=== PATIENT | male | born 1990 | race Hispanic/Latino ===

== ENCOUNTER 2019-03-27 00:05 | Emergency (ER) | payer SELFPAY ==
--- NOTE | 2019-03-27 00:41 | ER ---
Nurse's Notes [facility] Name: Ponce Kaiser Caro Age: 28 yrs Sex: Male : 1990 Arrival Date: 03/27/2019 Time: 00:08 Bed 4 Private MD: Diagnosis: Conjunctivitis Presentation: 03/27 00:20 Presenting complaint: Patient states: Reports Sunday he woke up with pink, itchy left ea eye. Pt reports it is getting worse and feels like redness and itching is starting on the right eye as well. Transition of care: patient was not received from another setting of care. Mechanism of Injury: No Mechanism of Injury. The patient denies any loss of vision. Onset of symptoms was March 27, 2019. Risk Assessment: Do you want to hurt yourself or someone else? Patient reports no desire to harm self or others. Initial Sepsis Screen: Does the patient meet any 2 criteria? No. Patient's initial sepsis screen is negative. Does the patient have a suspected source of infection? No. Patient's initial sepsis screen is negative. Care prior to arrival: None. 00:20 Method Of Arrival: Ambulatory ea 00:20 Acuity: DREAD 4 ea Triage Assessment: 00:23 General: Appears uncomfortable, Behavior is appropriate for age. Pain: Complains of ea pain in left eye Quality of pain is described as itchy. EENT: Eyes are tearing on outer aspect of conjuctiva of left eye, iris of left eye and inner aspect of conjunctiva of left eye. Historical: - Allergies: 00:22 No Known Allergies; ea - Home Meds: 00:22 None [Active]; ea - PMHx: 00:22 None; ea - PSHx: 00:22 None; ea - Immunization history:: Adult Immunizations up to date. - Social history:: Smoking status: Patient/guardian denies using tobacco. - Ebola Screening: : No symptoms or risks identified at this time. Screenin:22 Abuse screen: Denies threats or abuse. Nutritional screening: No deficits noted. ea Tuberculosis screening: No symptoms or risk factors identified. Fall Risk None identified. Assessment: 00:22 General: Appears in no apparent distress. comfortable, Behavior is calm, cooperative, rr5 appropriate for age. Pain: Denies pain. Neuro: Level of Consciousness is awake, alert, obeys commands, Oriented to person, place, time, situation. Cardiovascular: Capillary refill < 3 seconds Patient's skin is warm and dry. Respiratory: Airway is patent Respiratory effort is even, unlabored, Respiratory pattern is regular, symmetrical. 00:22 GI: No signs and/or symptoms were reported involving the gastrointestinal system. : rr5 No signs and/or symptoms were reported regarding the genitourinary system. EENT: Sclera/Cornea are reddened in outer aspect of conjuctiva of right eye, iris of right eye, inner aspect of conjuctiva of right eye, outer aspect of conjuctiva of left eye, iris of left eye and inner aspect of conjunctiva of left eye. Derm: Skin is intact, Skin temperature is warm. Musculoskeletal: Circulation, motion, and sensation intact. Capillary refill < 3 seconds. 00:22 EENT: Eyes with exudate noted from right inner canthus and left inner canthus rr5 Sclera/Cornea. 00:50 Reassessment: Patient appears in no apparent distress at this time. Patient is alert, rr5 oriented x 3, equal unlabored respirations, skin warm/dry/pink. discharge instruction given and explained without complaints made. Vital Signs: 00:22 BP 131 / 69; Pulse 79; Resp 18; Temp 98; Pulse Ox 97% on R/A; Weight 61.23 kg; Height 5 ea ft. 7 in. (170.18 cm); 00:22 Body Mass Index 21.14 (61.23 kg, 170.18 cm) ea Visual Acuity: 00:22 Left Eye Visual acuity 20/20, Pupil size 2 mm, Normal, Brisk; Right Eye Visual acuity rr5 20/20, Pupil size 2 mm, Normal, Brisk; Without Lenses; ED Course: 00:08 Patient arrived in ED. ds1 00:21 Triage completed. ea 00:21 Arm band placed on right wrist. Patient placed in an exam room, on a stretcher, on ea pulse oximetry. 00:22 Violeta Lanza FNP-C is PHCP. kb 00:22 Gustavo Mcneil MD is Attending Physician. kb 00:23 Patient has correct armband on for positive identification. Bed in low position. Call ea light in reach. 00:48 Karthikeyan French RN is Primary Nurse. rr5 00:50 No provider procedures requiring assistance completed. Patient did not have IV access rr5 during this emergency room visit. Administered Medications: No medications were administered Outcome: 00:33 Discharge ordered by . suzette 00:49 Discharged to home ambulatory. rr5 00:49 Condition: stable 00:49 Discharge instructions given to patient, Instructed on discharge instructions, follow up and referral plans. medication usage, Demonstrated understanding of instructions, follow-up care, medications, Prescriptions given X 1. 00:50 Patient left the ED. rr5 Signatures: Violeta Lanza, STAPLE SHEAR OPERATOR-C STAPLE SHEAR OPERATOR-Samanta William ds1 Yamilex Bardales, RN RN Karthikeyan Lyn, RN RN rr5
--- NOTE | 2019-03-27 00:43 | EDPHYS ---
Physician Documentation [facility] Name: Ponce Kaiser Caro Age: 28 yrs Sex: Male : 1990 Arrival Date: 03/27/2019 Time: 00:08 Bed 4 Private MD: ED Physician Gustavo Mcneil HPI: 03/27 00:27 This 28 yrs old Male presents to ER via Ambulatory with complaints of Eye Pain kb - Redness. 00:27 The patient is experiencing burning, matting or discharge, redness, The patient kb sustained None. to both eyes, caused by an unknown mechanism. Onset: The symptoms/episode began/occurred 3 day(s) ago. Duration: the symptoms are continuous. Aggravated by nothing. Alleviated by nothing. Associated signs and symptoms: Pertinent positives: None. Patient does not utilize any form of vision correction. Severity of symptoms: At their worst the symptoms were mild moderate in the emergency department the symptoms are unchanged. The patient has not experienced similar symptoms in the past. Pt reports he started having watering and itching to left eye on Sunday. Reports symptoms have gotten progressively worse since then with burning, itching, redness and matting. Today started having itching to right eye so is afraid it is starting there as well. Denies visual changes. No pain with EOM. Historical: - Allergies: 00:22 No Known Allergies; ea - Home Meds: 00:22 None [Active]; ea - PMHx: 00:22 None; ea - PSHx: 00:22 None; ea - Immunization history:: Adult Immunizations up to date. - Social history:: Smoking status: Patient/guardian denies using tobacco. - Ebola Screening: : No symptoms or risks identified at this time. ROS: 00:32 Constitutional: Negative for fever, chills, and weight loss, ENT: Negative for injury, kb pain, and discharge, Neck: Negative for injury, pain, and swelling, Cardiovascular: Negative for chest pain, palpitations, and edema, Respiratory: Negative for shortness of breath, cough, wheezing, and pleuritic chest pain, Abdomen/GI: Negative for abdominal pain, nausea, vomiting, diarrhea, and constipation, Back: Negative for injury and pain, MS/Extremity: Negative for injury and deformity, Skin: Negative for injury, rash, and discoloration, Neuro: Negative for headache, weakness, numbness, tingling, and seizure. 00:32 Eyes: Positive for discharge, itching, matting, redness. Exam: 00:32 Constitutional: This is a well developed, well nourished patient who is awake, alert, kb and in no acute distress. Head/Face: Normocephalic, atraumatic. ENT: Nares patent. No nasal discharge, no septal abnormalities noted. Tympanic membranes are normal and external auditory canals are clear. Oropharynx with no redness, swelling, or masses, exudates, or evidence of obstruction, uvula midline. Mucous membranes moist. Neck: Trachea midline, no thyromegaly or masses palpated, and no cervical lymphadenopathy. Supple, full range of motion without nuchal rigidity, or vertebral point tenderness. No Meningismus. Chest/axilla: Normal chest wall appearance and motion. Nontender with no deformity. No lesions are appreciated. Cardiovascular: Regular rate and rhythm with a normal S1 and S2. No gallops, murmurs, or rubs. Normal PMI, no JVD. No pulse deficits. Respiratory: Lungs have equal breath sounds bilaterally, clear to auscultation and percussion. No rales, rhonchi or wheezes noted. No increased work of breathing, no retractions or nasal flaring. Abdomen/GI: Soft, non-tender, with normal bowel sounds. No distension or tympany. No guarding or rebound. No evidence of tenderness throughout. Skin: Warm, dry with normal turgor. Normal color with no rashes, no lesions, and no evidence of cellulitis. MS/ Extremity: Pulses equal, no cyanosis. Neurovascular intact. Full, normal range of motion. Neuro: Awake and alert, GCS 15, oriented to person, place, time, and situation. Cranial nerves II-XII grossly intact. Motor strength 5/5 in all extremities. Sensory grossly intact. Cerebellar exam normal. Normal gait. 00:32 Eyes: Pupils: equal, round, and reactive to light and accomodation, Extraocular movements: intact throughout, Conjunctiva: exudate, in the left eye, injected, bilaterally, worse on left. Vital Signs: 00:22 BP 131 / 69; Pulse 79; Resp 18; Temp 98; Pulse Ox 97% on R/A; Weight 61.23 kg; Height 5 ea ft. 7 in. (170.18 cm); 00:22 Body Mass Index 21.14 (61.23 kg, 170.18 cm) ea Visual Acuity: 00:22 Left Eye Visual acuity 20/20, Pupil size 2 mm, Normal, Brisk; Right Eye Visual acuity rr5 20/20, Pupil size 2 mm, Normal, Brisk; Without Lenses; MDM: 00:22 Patient medically screened. kb 00:27 Data reviewed: vital signs, nurses notes. Data interpreted: Pulse oximetry: on room air kb is 97 %. Interpretation: normal. Counseling: I had a detailed discussion with the patient and/or guardian regarding: the historical points, exam findings, and any diagnostic results supporting the discharge/admit diagnosis, the need for outpatient follow up, a family practitioner, to return to the emergency department if symptoms worsen or persist or if there are any questions or concerns that arise at home. Administered Medications: No medications were administered Disposition: 03/27/19 00:33 Discharged to Home. Impression: Conjunctivitis. - Condition is Stable. - Discharge Instructions: Bacterial Conjunctivitis, [id number]. - Prescriptions for Erythromycin 5 mg/gram (0.5 %) Ophthalmic Ointment - apply 1 centimeter by OPHTHALMIC route 2-3 times daily for 7 days; 1 tube. - Medication Reconciliation Form, Thank You Letter, Antibiotic Education, Prescription Opioid Use form. - Follow up: Emergency Department; When: As needed; Reason: Worsening of condition. Follow up: Private Physician; When: 2 - 3 days; Reason: Recheck today's complaints, Continuance of care, Re-evaluation by your physician. Signatures: Violeta Lanza FNP-C FNP-Yamilex No, RN RN Karthikeyan Lyn RN RN rr5 Corrections: (The following items were deleted from the chart) 00:50 00:33 03/27/2019 00:33 Discharged to Home. Impression: Conjunctivitis. Condition is rr5 Stable. Forms are Medication Reconciliation Form, Thank You Letter, Antibiotic Education, Prescription Opioid Use. Follow up: Emergency Department; When: As needed; Reason: Worsening of condition. Follow up: Private Physician; When: 2 - 3 days; Reason: Recheck today's complaints, Continuance of care, Re-evaluation by your physician. kb
[2019-03-27 04:54] VITALS: BP 131/69; TEMP 98; O2SAT 97
== END 2019-03-27 00:50 | disposition home or self-care (01) ==
LOC: ER 00:05
DX: H10.9 Unspecified conjunctivitis (principal)
CPT/HCPCS: 99283

== ENCOUNTER 2019-04-08 23:49 | Emergency (ER) | payer SELFPAY ==
--- NOTE | 2019-04-09 00:14 | EDPHYS ---
Physician Documentation [facility] Name: Ponce Kaiser Caro Age: 28 yrs Sex: Male : 1990 Arrival Date: 04/08/2019 Time: 23:54 Bed 13 Private MD: ED Physician Jonathan Luke HPI: 04/09 00:30 This 28 yrs old Male presents to ER via Ambulatory with complaints of Redness pm1 of Eye. 00:30 The patient is experiencing pain, redness, tearing, to the left eye, caused by an pm1 unknown mechanism. Onset: The symptoms/episode began/occurred 2 week(s) ago. Duration: the symptoms are continuous. Aggravated by nothing. Alleviated by nothing. Associated signs and symptoms: Pertinent negatives: fever, headache. Patient does not utilize any form of vision correction. The patient has not experienced similar symptoms in the past. The patient has been recently seen at the [facility] Emergency Department, for similar complaints was given a prescription for antibiotics. Historical: - Allergies: 00:03 No Known Allergies; ea - Home Meds: 00:03 None [Active]; ea - PMHx: 00:03 None; ea - PSHx: 00:03 None; ea - Immunization history:: Adult Immunizations up to date. - Social history:: Smoking status: Patient/guardian denies using tobacco. - Ebola Screening: : No symptoms or risks identified at this time. ROS: 00:30 Constitutional: Negative for fever, chills, and weight loss. pm1 00:30 ENT: Negative for injury, pain, and discharge, Neck: Negative for injury, pain, and swelling, Cardiovascular: Negative for chest pain, palpitations, and edema, Respiratory: Negative for shortness of breath, cough, wheezing, and pleuritic chest pain, Abdomen/GI: Negative for abdominal pain, nausea, vomiting, diarrhea, and constipation, Back: Negative for injury and pain, MS/Extremity: Negative for injury and deformity, Skin: Negative for injury, rash, and discoloration, Neuro: Negative for headache, weakness, numbness, tingling, and seizure. 00:30 Eyes: Positive for blurry vision, discharge, pain. Exam: 00:30 Constitutional: This is a well developed, well nourished patient who is awake, alert, pm1 and in no acute distress. Head/Face: Normocephalic, atraumatic. 00:30 ENT: Nares patent. No nasal discharge, no septal abnormalities noted. Tympanic membranes are normal and external auditory canals are clear. Oropharynx with no redness, swelling, or masses, exudates, or evidence of obstruction, uvula midline. Mucous membranes moist. Neck: Trachea midline, no thyromegaly or masses palpated, and no cervical lymphadenopathy. Supple, full range of motion without nuchal rigidity, or vertebral point tenderness. No Meningismus. Chest/axilla: Normal chest wall appearance and motion. Nontender with no deformity. No lesions are appreciated. Cardiovascular: Regular rate and rhythm with a normal S1 and S2. No gallops, murmurs, or rubs. Normal PMI, no JVD. No pulse deficits. Respiratory: Lungs have equal breath sounds bilaterally, clear to auscultation and percussion. No rales, rhonchi or wheezes noted. No increased work of breathing, no retractions or nasal flaring. Skin: Warm, dry with normal turgor. Normal color with no rashes, no lesions, and no evidence of cellulitis. MS/ Extremity: Pulses equal, no cyanosis. Neurovascular intact. Full, normal range of motion. 00:30 Eyes: Extraocular movements: intact throughout, Conjunctiva: injected, in the left eye. 00:30 Neuro: Orientation: is normal, Motor: is normal, moves all fours. Vital Signs: 00:02 BP 139 / 81; Pulse 71; Resp 18; Temp 98; Pulse Ox 98% ; Weight 75.75 kg; Height 5 ft. 8 ea in. (172.72 cm); Pain 8/10; 00:55 BP 128 / 81; Pulse 63; Resp 18; Pulse Ox 98% ; jb4 00:02 Body Mass Index 25.39 (75.75 kg, 172.72 cm) ea Visual Acuity: 01:01 Left Eye Visual acuity 20/40, ; Right Eye Visual acuity 20/20, ; Without Lenses; ea MDM: 00:03 Patient medically screened. pm1 00:11 Data reviewed: vital signs. Data interpreted: Pulse oximetry: on room air is 98 %. pm1 Interpretation: normal. Counseling: I had a detailed discussion with the patient and/or guardian regarding: the historical points, exam findings, and any diagnostic results supporting the discharge/admit diagnosis, the need for outpatient follow up, for definitive care, an opthalmologist, to return to the emergency department if symptoms worsen or persist or if there are any questions or concerns that arise at home. 04/09 00:14 Order name: Visual Acuity; Complete Time: 01:00 pm1 Administered Medications: 00:29 Drug: Tetracaine Drops 0.5 % 1 drops Route: Ophthalmic; Site: left eye; ea 00:30 Drug: Tylenol #3 (300 mg-30 mg) 1 tablet Route: PO; ea 01:05 Follow up: Response: No adverse reaction; RASS: Alert and Calm (0) jb4 Disposition: 04/09/19 00:13 Discharged to Home. Impression: Conjunctivitis. - Condition is Stable. - Discharge Instructions: Bacterial Conjunctivitis. - Prescriptions for Vigamox 0.5 % Ophthalmic Drops - instill 1 drop by OPHTHALMIC route every 8 hours for 7 days; 5 milliliter. Diclofenac Sodium 75 mg Oral Tablet Sustained Release - take 1 tablet by ORAL route 2 times per day; 30 tablet. - Medication Reconciliation Form, Thank You Letter, Antibiotic Education, Prescription Opioid Use, Work release form form. - Follow up: Emergency Department; When: As needed; Reason: Worsening of condition. Follow up: Private Physician; When: 2 - 3 days; Reason: Recheck today's complaints, Continuance of care, Re-evaluation by your physician. - Problem is new. - Symptoms have improved. Addendum: 04/10/2019 07:43 Co-signature as Attending Physician, Jonathan Luke MD I agree with the assessment and c edmonds plan of care. Signatures: Jonathan Luke MD MD cha Marinas, Patrick, NP SURVEYOR INSTRUMENT ASSISTANT pm1 Jonel Zimmerman RN RN jb4 Yamilex Bardales RN RN ea Corrections: (The following items were deleted from the chart) 04/09 01:06 00:13 04/09/2019 00:13 Discharged to Home. Impression: Conjunctivitis. Condition is jb4 Stable. Forms are Medication Reconciliation Form, Thank You Letter, Antibiotic Education, Prescription Opioid Use. Follow up: Emergency Department; When: As needed; Reason: Worsening of condition. Follow up: Private Physician; When: 2 - 3 days; Reason: Recheck today's complaints, Continuance of care, Re-evaluation by your physician. Problem is new. Symptoms have improved. pm1
--- NOTE | 2019-04-09 00:14 | ER ---
Nurse's Notes [facility] Name: Ponce Kaiser Caro Age: 28 yrs Sex: Male : 1990 Arrival Date: 04/08/2019 Time: 23:54 Bed 13 Private MD: Diagnosis: Conjunctivitis Presentation: 04/09 00:01 Presenting complaint: Patient states: Pt complaining of left eye pain, reports he was ea seen a week ago for the same issue but symptoms worsened. Transition of care: patient was not received from another setting of care. Onset of symptoms was April 09, 2019. Risk Assessment: Do you want to hurt yourself or someone else? Patient reports no desire to harm self or others. Initial Sepsis Screen: Does the patient meet any 2 criteria? No. Patient's initial sepsis screen is negative. Does the patient have a suspected source of infection? No. Patient's initial sepsis screen is negative. Care prior to arrival: None. 00:01 Method Of Arrival: Ambulatory ea 00:01 Acuity: DREAD 3 ea Triage Assessment: 00:02 General: Appears uncomfortable, Behavior is calm, cooperative, appropriate for age. ea Pain: Complains of pain in left eye. Historical: - Allergies: 00:03 No Known Allergies; ea - Home Meds: 00:03 None [Active]; ea - PMHx: 00:03 None; ea - PSHx: 00:03 None; ea - Immunization history:: Adult Immunizations up to date. - Social history:: Smoking status: Patient/guardian denies using tobacco. - Ebola Screening: : No symptoms or risks identified at this time. Screenin:02 Abuse screen: Denies threats or abuse. Nutritional screening: No deficits noted. ea Tuberculosis screening: No symptoms or risk factors identified. Fall Risk None identified. Assessment: 01:03 Reassessment: Patient and/or family updated on plan of care and expected duration. Pain jb4 level reassessed. Patient is alert, oriented x 3, equal unlabored respirations, skin warm/dry/pink. Discharge instruction given to patient, verbalized the understanding of instruction. Pt left ED accompanied by family. Vital Signs: 00:02 BP 139 / 81; Pulse 71; Resp 18; Temp 98; Pulse Ox 98% ; Weight 75.75 kg; Height 5 ft. 8 ea in. (172.72 cm); Pain 8/10; 00:55 BP 128 / 81; Pulse 63; Resp 18; Pulse Ox 98% ; jb4 00:02 Body Mass Index 25.39 (75.75 kg, 172.72 cm) ea Visual Acuity: 01:01 Left Eye Visual acuity 20/40, ; Right Eye Visual acuity 20/20, ; Without Lenses; ea ED Course: 04/08 23:54 Patient arrived in ED. cl3 04/09 00:02 Triage completed. ea 00:02 Killian Devlin NP is PHCP. pm1 00:02 Jonathan Luke MD is Attending Physician. pm1 00:03 Arm band placed on right wrist. Patient placed in an exam room, on a stretcher, on ea pulse oximetry. 00:03 Patient has correct armband on for positive identification. Bed in low position. Call ea light in reach. Side rails up X2. 01:00 No provider procedures requiring assistance completed. Patient did not have IV access ea during this emergency room visit. Administered Medications: 00:29 Drug: Tetracaine Drops 0.5 % 1 drops Route: Ophthalmic; Site: left eye; ea 00:30 Drug: Tylenol #3 (300 mg-30 mg) 1 tablet Route: PO; ea 01:05 Follow up: Response: No adverse reaction; RASS: Alert and Calm (0) jb4 Outcome: 00:13 Discharge ordered by . pm1 01:04 Discharged to home ambulatory, with family. jb4 01:04 Condition: stable 01:04 Discharge instructions given to patient, Instructed on discharge instructions, follow up and referral plans. medication usage, Demonstrated understanding of instructions, follow-up care, medications. 01:06 Patient left the ED. jb4 Signatures: Killian Devlin NP MACHINE STONE POLISHER APPRENTICE pm1 Jonel Zimmerman RN RN jb4 Yamilex Bardales RN RN ea Lewis, Charde cl3 Corrections: (The following items were deleted from the chart) 01:06 01:05 BP 128 / 81; Pulse 63bpm; Resp 18bpm; Pulse Ox 98%; jb4 jb4
[2019-04-09] MEDS ORDERED: TETRACAINE HCL 0.5% 4ML OPTH ONE (00:16)
[2019-04-09] MEDS ORDERED: CODEINE 30MG/APAP 300MG TAB ONE (00:30)
[2019-04-09 01:21] VITALS: TEMP 98; O2SAT 98
[2019-04-09 01:22] VITALS: BP 128/81
== END 2019-04-09 01:06 | disposition home or self-care (01) ==
LOC: ER 23:49
DX: H10.9 Unspecified conjunctivitis (principal)
CPT/HCPCS: 99283

== ENCOUNTER 2019-05-28 19:00 | Emergency (ER) | payer SELFPAY ==
[2019-05-28 20:26] LABS: Urine Blood NEGATIVE (NEG); Urine Glucose NEGATIVE (NEG); Urine Protein NEGATIVE (NEG); Urine Specific Gravity 1.025 (1.005-1.030)
--- NOTE | 2019-05-28 21:16 | EDPHYS ---
Physician Documentation [facility] Name: Ponce Kaiser Caro Age: 28 yrs Sex: Male : 1990 Arrival Date: 05/28/2019 Time: 19:02 Bed 8 Private MD: DOMI Physician Saeed Bartholomew HPI: 05/29 02:32 This 28 yrs old Male presents to ER via Ambulatory with complaints of Penile tw4 Discharge, Pain With Urination. 02:32 The patient presents with symptoms include dysuria, purulent penile discharge, urinary tw4 symptoms, dysuria. Onset: The symptoms/episode began/occurred 2 day(s) ago. Modifying factors: The symptoms are alleviated by nothing, the symptoms are aggravated by urinating. Associated signs and symptoms: The patient has no apparent associated signs or symptoms. Severity of symptoms: At their worst the symptoms were moderate. The patient has not experienced similar symptoms in the past. Historical: - Allergies: 05/28 19:32 No Known Allergies; aj1 - Home Meds: 19:32 None [Active]; aj1 - PMHx: 19:32 None; aj1 - PSHx: 19:32 None; aj1 - Immunization history:: Flu vaccine is not up to date. - Social history:: Smoking status: Patient/guardian denies using tobacco. - Ebola Screening: : Patient denies travel to an Ebola-affected area in the 21 days before illness onset. ROS: 05/29 02:32 Constitutional: Negative for fever, chills, and weight loss, Eyes: Negative for injury, tw4 pain, redness, and discharge, Cardiovascular: Negative for chest pain, palpitations, and edema, Respiratory: Negative for shortness of breath, cough, wheezing, and pleuritic chest pain, Abdomen/GI: Negative for abdominal pain, nausea, vomiting, diarrhea, and constipation, Back: Negative for injury and pain. MS/Extremity: Negative for injury and deformity, Skin: Negative for injury, rash, and discoloration, Neuro: Negative for headache, weakness, numbness, tingling, and seizure. : Positive for burning with urination, difficulty urinating, Negative for injury or acute deformity, urinary symptoms, urinary frequency, small amounts, hematuria, penile pain, testicular pain Exam: 02:32 Constitutional: This is a well developed, well nourished patient who is awake, alert, tw4 and in no acute distress. Head/Face: Normocephalic, atraumatic. Chest/axilla: Normal chest wall appearance and motion. Nontender with no deformity. No lesions are appreciated. Cardiovascular: Regular rate and rhythm with a normal S1 and S2. No gallops, murmurs, or rubs. Normal PMI, no JVD. No pulse deficits. Respiratory: Lungs have equal breath sounds bilaterally, clear to auscultation and percussion. No rales, rhonchi or wheezes noted. No increased work of breathing, no retractions or nasal flaring. Abdomen/GI: Soft, non-tender, with normal bowel sounds. No distension or tympany. No guarding or rebound. No evidence of tenderness throughout. Back: No spinal tenderness. No costovertebral tenderness. Full range of motion. MS/ Extremity: Pulses equal, no cyanosis. Neurovascular intact. Full, normal range of motion. Neuro: Awake and alert, GCS 15, oriented to person, place, time, and situation. Cranial nerves II-XII grossly intact. Motor strength 5/5 in all extremities. Sensory grossly intact. Cerebellar exam normal. Normal gait. Vital Signs: 05/28 19:32 BP 141 / 78; Pulse 104; Resp 20; Temp 98.1; Pulse Ox 100% on R/A; Weight 86.18 kg (R); aj1 Height 5 ft. 5 in. (167 cm) (R); Pain 3/10; 19:32 Body Mass Index 30.90 (86.18 kg, 167 cm) aj1 MDM: 20:54 Patient medically screened. tw4 21:16 Differential diagnosis: nonspecific abdominal pain, appendicitis, UTI, urinary tw4 retention, Oconnell catheter problem, prostatitis, urethritis. Data reviewed: vital signs, nurses notes. Medical screen evaluation completed. EMTALA emergency medical condition absent. 05/29 02:32 Counseling: I had a detailed discussion with the patient and/or guardian regarding: the tw4 historical points, exam findings, and any diagnostic results supporting the discharge/admit diagnosis. 05/28 20:17 Order name: Urine Dipstick--Ancillary (enter results) mw2 05/28 20:01 Order name: Urine Dipstick-Ancillary (obtain specimen); Complete Time: 20:58 aa1 Administered Medications: No medications were administered Disposition: 05/28/19 21:15 Discharged to Home. Impression: Urethritis and urethral syndrome. - Condition is Stable. - Discharge Instructions: Urethritis, Adult. - Medication Reconciliation Form, Thank You Letter, Antibiotic Education, Prescription Opioid Use form. - Follow up: Private Physician; When: Upon discharge from the Emergency Department; Reason: Recheck today's complaints, Continuance of care. - Problem is new. - Symptoms have improved. Signatures: Dispatcher [employer] EDMS Tarah Andrew RN RN aj1 Evie Romero RN RN aa1 Yamilex Bardales RN RN ea Saeed Bartholomew MD MD tw4 Corrections: (The following items were deleted from the chart) 05/28 21:16 21:15 05/28/2019 21:15 Discharged to Home. Impression: Urethritis and urethral ea syndrome. Condition is Stable. Forms are Medication Reconciliation Form, Thank You Letter, Antibiotic Education, Prescription Opioid Use. Follow up: Private Physician; When: Upon discharge from the Emergency Department; Reason: Recheck today's complaints, Continuance of care. Problem is new. Symptoms have improved. tw4
--- NOTE | 2019-05-28 21:16 | ER ---
Nurse's Notes [facility] Name: Ponce Kaiser Caro Age: 28 yrs Sex: Male : 1990 Arrival Date: 05/28/2019 Time: 19:02 Bed 8 Private MD: Diagnosis: Urethritis and urethral syndrome Presentation: 05/28 19:29 Presenting complaint: Patient states: Via siderographist #[id number] Since 2 days ago I have aj1 been having pain on the prostate and discharge and I don't know if its parasites or an illness. Denies fever. Reports dysuria. Reports yellow discharge from the penis. Transition of care: patient was not received from another setting of care. Onset of symptoms was May 28, 2019. Risk Assessment: Do you want to hurt yourself or someone else? Patient reports no desire to harm self or others. Initial Sepsis Screen: Does the patient meet any 2 criteria? No. Patient's initial sepsis screen is negative. Does the patient have a suspected source of infection? No. Patient's initial sepsis screen is negative. Care prior to arrival: None. 19:29 Method Of Arrival: Ambulatory [facility] 19:29 Acuity: DREAD 4 aj1 Triage Assessment: 19:32 General: Appears in no apparent distress. comfortable, Behavior is calm, cooperative, aj1 appropriate for age. Pain: Complains of pain in pelvis Pain currently is 3 out of 10 on a pain scale. Neuro: Level of Consciousness is awake, alert, obeys commands. Cardiovascular: Patient's skin is warm and dry. Respiratory: Airway is patent Respiratory effort is even, unlabored, Respiratory pattern is regular, symmetrical. : Reports burning with urination. Historical: - Allergies: 19:32 No Known Allergies; aj1 - Home Meds: 19:32 None [Active]; aj1 - PMHx: 19:32 None; aj1 - PSHx: 19:32 None; aj1 - Immunization history:: Flu vaccine is not up to date. - Social history:: Smoking status: Patient/guardian denies using tobacco. - Ebola Screening: : Patient denies travel to an Ebola-affected area in the 21 days before illness onset. Screenin:58 Fall Risk None identified. ea 21:08 Abuse screen: Denies threats or abuse. Nutritional screening: No deficits noted. ea Tuberculosis screening: No symptoms or risk factors identified. Assessment: 21:06 General: Appears in no apparent distress. Behavior is calm, cooperative, appropriate ea for age. Pain: Complains of pain in tip of penis. Neuro: Level of Consciousness is awake, alert, obeys commands, Oriented to person, place, time, situation. Cardiovascular: Patient's skin is warm and dry. Respiratory: Airway is patent Respiratory effort is even, unlabored, Respiratory pattern is regular, symmetrical. Derm: Skin is pink, warm \T\ dry. Musculoskeletal: No signs and/or symptoms reported regarding the musculoskeletal system. Vital Signs: 19:32 BP 141 / 78; Pulse 104; Resp 20; Temp 98.1; Pulse Ox 100% on R/A; Weight 86.18 kg (R); aj1 Height 5 ft. 5 in. (167 cm) (R); Pain 3/10; 19:32 Body Mass Index 30.90 (86.18 kg, 167 cm) aj ED Course: 19:02 Patient arrived in ED. as 19:32 Triage completed. aj1 19:32 Arm band placed on Patient placed in waiting room, Patient notified of wait time. aj1 20:08 Saeed Bartholomew MD is Attending Physician. tw4 20:09 Urine collected: clean catch specimen, germán colored. aa1 21:05 Yamilex Bardales, RN is Primary Nurse. ea 21:06 Patient has correct armband on for positive identification. Bed in low position. Call ea light in reach. 21:08 No provider procedures requiring assistance completed. Patient did not have IV access ea during this emergency room visit. Administered Medications: No medications were administered Outcome: 21:08 Following a medical screening exam, the patient was provided information regarding ea alternative care sites and resources available per registration personnel. 21:09 Condition: stable ea 21:09 Medical screen evaluation completed per provider. Patient declined treatment. ea 21:15 Discharge ordered by . tw4 21:16 Patient left the ED. ea Signatures: Tarah Andrew, RN RN aj1 Evie Romero RN RN aa1 Melisa Beauchamp Elena, RN RN ea Wadley, Terrence, MD MD tw4
[2019-05-28 23:52] VITALS: BP 141/78; TEMP 98.1; O2SAT 100
== END 2019-05-28 21:16 | disposition home or self-care (01) ==
LOC: ER 19:00
DX: N34.3 Urethral syndrome, unspecified (principal); N34.2 Other urethritis
CPT/HCPCS: 81003; 99282

== ENCOUNTER 2024-11-24 05:12 | Emergency (ER) | payer SELFPAY ==
[2024-11-24 06:33] LABS: Absolute Eosinophils 0.7 K/uL (0-0.5); Absolute Lymphocytes (CBC) 2.7 K/uL (0.7-4.9); Absolute Monocytes 0.6 K/uL (0.1-1.3); Absolute Neutrophil 5.4 K/uL (1.8-8.0); Basophils % 0.4 % (0-1.3); Eosinophils % 7.6 % (0-4.4); Hematocrit 42.6 % (39.6-49.0); Hemoglobin 14.7 g/dL (13.6-17.9); Lymphocytes % 28.8 % (15.3-44.8); MCH 29.5 pg (27.0-35.0); MCHC 34.6 g/dL (32.0-36.0); MCV 85.1 fL (80-100); MPV 8.7 fL (7.6-11.3); Monocytes % 6.4 % (3.3-12.3); Neutrophils % 56.8 % (41.7-73.7); Nucleated Red Blood Cells % 0.1 % (0-0); Platelets 298 thou/uL (152-406); Red Cell Distribution Width 13.5 % (12.1-15.2)
--- NOTE | 2024-11-24 06:54 | RAD REPORT ---
EXAM DESCRIPTION: CT ABDOMEN AND PELVIS WITHOUT CONTRAST CLINICAL HISTORY: flank/back pain COMPARISON: None Available. TECHNIQUE: CT of the abdomen and pelvis without IV contrast. Evaluation of the solid organs and vascu lature is suboptimal due to lack of IV contrast. This exam was performed according to our departmental dose-optimization program, which includes automated exposure control, adjustment of the mA and/or kV according to patient size and/or use of iterative reconstruction technique. FINDINGS: Lung Bases: The visualized lung bases are clear. Bones: No acute osseous abnormality identified. Abdomen: Liver: The liver has normal size and density. Gallbladder: No calcified gallstones. Spleen, Pancreas, and Adrenal Glands: The spleen, pancreas, and adrenal glands are unremarkable. Kidneys: No hydronephrosis or obstructing ureteral calculi. Vasculature: The aorta and IVC have normal caliber and position. Stomach: The stomach and duodenum have normal course. Other: No free intraperitoneal air. No free fluid or lymphadenopathy. Pelvis: Bladder: Urinary bladder is unremarkable. Bowel: No dilated loops of large or small bowel. Appendix: Normal appendix. Pelvis: Prostate is not enlarged. IMPRESSION: 1. No acute inflammatory or obstructive process identified. Electronically signed by: Pedro Pablo Pelayo DO 11/24/2024 06:51 AM CDT 4ZDM Due to temporary technical issues with the PACS/[employer] reporting system, reports are being yarely d by the in-house radiologist without review as a courtesy to ensure prompt reporting the interpreting radiologist is fully responsible for the content of the report. Transcribed Date/Time: 11/24/2024 6:54 AM
[2024-11-24 07:33] LABS: Albumin 3.9 g/dL (3.4-5.0); Albumin/Globulin Ratio 1.1 (1.1-1.8); Anion Gap 8.3 mEq/L (5.0-15.0); Bilirubin Total 1.1 mg/dL (0.2-1.0); Globulin 3.5 g/dL (2.3-3.5); Potassium 4.3 mEq/L (3.5-5.1); Protein, Total 7.4 g/dL (6.4-8.2)
[2024-11-24 08:38] LABS: Specific Gravity 1.015 (1.005-1.030); Sqamous Epithelial None Seen /HPF (None Seen); Urine Bacteria None Seen /HPF (<20); Urine Bilirubin NEGATIVE (Negative); Urine Blood Negative (Negative); Urine Clarity Clear (Clear); Urine Color Light-Yellow (Yellow); Urine Culture Reflex Order NOT NEEDED; Urine Glucose NEGATIVE (Negative); Urine Ketones NEGATIVE (Negative); Urine Microscopic Reflex YN ORDER UMIC; Urine Nitrite NEGATIVE (Negative); Urine Protein NEGATIVE (Negative); Urine RBC <5 /HPF (None Seen); Urine Urobilinogen Normal (Normal); Urine WBC <5 /HPF (<5); Urine pH 6.5 (5.0-7.0)
--- NOTE | 2024-11-24 08:51 | EDPHYS ---
Physician Documentation [facility] Name: Ponce Kaiser Caro Age: 33 yrs Sex: Male : 1990 Arrival Date: 11/24/2024 Time: 05:12 Bed 6 Private MD: ED Physician Mike Colon HPI: 11/24 06:37 This 33 yrs old Male presents to ER via Ambulatory with complaints of Back rt Pain. 06:37 Patient presents to the ED with a left flank pain radiating inferiorly to the back of rt his leg. Is been present for about 2 days, is intermittent. States that when the pain is more intense, has nausea but did not have any vomiting. Denies any leaking complaints at this time, symptoms are moderate in severity, no other aggravating or alleviating factors.. Historical: - Allergies: 05:30 No Known Allergies; br2 - Home Meds: 05:30 None [Active]; br2 - PMHx: 05:30 None; br2 - Immunization history:: Adult Immunizations up to date. - Infectious Disease History:: Denies. - Social history:: Smoking status: Patient denies any tobacco usage or history of. Patient uses alcohol, on a daily basis. Patient/guardian denies using street drugs. - Family history:: not pertinent. ROS: 06:37 Constitutional: Negative for fever, chills, and weight loss, Cardiovascular: Negative rt for chest pain, palpitations, and edema, Respiratory: Negative for shortness of breath, cough, wheezing, and pleuritic chest pain, MS/Extremity: Negative for injury and deformity, Skin: Negative for injury, rash, and discoloration, Neuro: Negative for headache, weakness, numbness, tingling, and seizure, 06:37 Abdomen/GI: Positive for nausea, Negative for abdominal pain, 06:37 Back: Positive for pain at rest, flank pain, Negative for injury or acute deformity, Exam: 06:37 Constitutional: This is a well developed, well nourished patient who is awake, alert, rt and in no acute distress. Head/Face: Normocephalic, atraumatic. Chest/axilla: Normal chest wall appearance and motion. Nontender with no deformity. No lesions are appreciated. Cardiovascular: Regular rate and rhythm with a normal S1 and S2. No gallops, murmurs, or rubs. Normal PMI, no JVD. No pulse deficits. Respiratory: Lungs have equal breath sounds bilaterally, clear to auscultation and percussion. No rales, rhonchi or wheezes noted. No increased work of breathing, no retractions or nasal flaring. Abdomen/GI: Soft, non-tender, with normal bowel sounds. No distension or tympany. No guarding or rebound. No evidence of tenderness throughout. Skin: Warm, dry with normal turgor. Normal color with no rashes, no lesions, and no evidence of cellulitis. MS/ Extremity: Pulses equal, no cyanosis. Neurovascular intact. Full, normal range of motion. Neuro: Awake and alert, GCS 15, oriented to person, place, time, and situation. Cranial nerves II-XII grossly intact. Motor strength 5/5 in all extremities. Sensory grossly intact. Cerebellar exam normal. Normal gait. Vital Signs: 05:28 BP 125 / 97; Pulse 71; Resp 18; Temp 97.8; Pulse Ox 98% ; Weight 86.18 kg; Height 5 ft. br2 6 in. ; Pain 5/10; 06:05 BP 124 / 76; Pulse 63; Resp 18; Pulse Ox 97% ; al5 08:07 BP 127 / 69; Pulse 57; Resp 15; Pulse Ox 97% ; bp 05:28 Body Mass Index 30.67 (86.18 kg, 167.64 cm) br2 05:28 Pain Scale: Adult br2 MDM: 05:36 Medical Screening Exam initiated rt 08:52 Differential diagnosis: Kidney stone vs muscle spasm vs UTI. Data reviewed: vital ms3 signs, nurses notes, lab test result(s), radiologic studies, and as a result, I will discharge patient. Counseling: I had a detailed discussion with the patient and/or guardian regarding the historical points, exam findings, and any diagnostic results supporting the discharge/admit diagnosis, lab results, radiology results, the need for outpatient follow up, to return to the emergency department if symptoms worsen or persist or if there are any questions or concerns that arise at home. Special discussion: I discussed with the patient/guardian in detail that at this point there is no indication for admission to the hospital. It is understood, however, that if the symptoms persist or worsen the patient needs to return immediately for re-evaluation. ED course: Discussed labs and imaging with patient. Patient to follow-up with Dr. Forde in 2 to 3 days for reevaluation. All questions were answered. Return precautions discussed include worsening symptoms, or any other concerns. On reevaluation patient is improved, alert and orient x 4, no apparent distress, nontoxic-appearing, speaking full sentences. 11/24 05:40 Order name: CBC with Diff; Complete Time: 06:55 rt 11/24 05:40 Order name: CMP; Complete Time: 07:39 rt 11/24 05:40 Order name: UA Rfx Veto Cult if indicated; Complete Time: 08:46 rt 11/24 05:40 Order name: CT Abd/Pelvis - Without Contrast; Complete Time: 06:55 rt Administered Medications: No medications were administered Disposition Summary: 11/24/24 08:50 Discharge Ordered Notes: Location: Home ms3 Condition: Stable ms3 Diagnosis - Flank pain ms3 Followup: ms3 - With: Hima Forde DO - When: 2 - 3 days - Reason: Recheck today's complaints Discharge Instructions: - Discharge Summary Sheet ms3 - Flank Pain, Adult, [id number] ms3 Forms: - Work release form ms3 - Medication Reconciliation Form ms3 - Antibiotic Education ms3 - Prescription Opioid Use ms3 - Patient Portal Instructions ms3 - Leadership Thank You Letter ms3 Prescriptions: - Cyclobenzaprine 10 mg Oral Tablet - take 1 tablet ORAL route every 8 hours As needed; 30 tablet; Refills: 0, ms3 Product Selection Permitted Signatures: Dispatcher [employer] EDMS Mike Colon DO DO ms3 George Frazier MD MD rt Kaila Rosa, PELON RN br2
--- NOTE | 2024-11-24 08:51 | ER ---
Nurse's Notes [facility] Name: Ponce Kaiser Caro Age: 33 yrs Sex: Male : 1990 Arrival Date: 11/24/2024 Time: 05:12 Bed 6 Private MD: Diagnosis: Flank pain Presentation: 11/24 05:28 Chief complaint: Patient states: LEFT FLANK PAIN THAT RADIATES TO LLE, BEGAN 2 DAYS br2 AGO. DENIES INJURY OR URINARY SYMPTOMS. Coronavirus screen: Client denies travel out of the [place] in the last 14 days. Ebola Screen: Patient denies exposure to infectious person. Initial Sepsis Screen: Does the patient meet any 2 criteria? No. Patient's initial sepsis screen is negative. Does the patient have a suspected source of infection? No. Patient's initial sepsis screen is negative. Risk Assessment: Do you want to hurt yourself or someone else? Patient reports no desire to harm self or others. Onset of symptoms was November 22, 2024. 05:28 Method Of Arrival: Ambulatory br2 05:28 Acuity: DREAD 4 br2 Triage Assessment: 05:30 General: Appears in no apparent distress. uncomfortable, Behavior is calm, cooperative. br2 Pain: Complains of pain in left low back Pain radiates to left hamstring, posterior aspect of left knee and left calf. EENT: No deficits noted. Neuro: No deficits noted. Laboy Agitation-Sedation Scale (RASS): 0 - Alert and Calm Level of Consciousness is awake, alert, obeys commands, Oriented to person, place, time, situation. Cardiovascular: Denies chest pain. Respiratory: Denies shortness of breath. GI: No signs and/or symptoms were reported involving the gastrointestinal system. : No signs and/or symptoms were reported regarding the genitourinary system. Derm: No signs and/or symptoms reported regarding the dermatologic system. Musculoskeletal: Circulation, motion, and sensation intact. Capillary refill < 3 seconds, Range of motion: intact in all extremities. Historical: - Allergies: 05:30 No Known Allergies; br2 - Home Meds: 05:30 None [Active]; br2 - PMHx: 05:30 None; br2 - Immunization history:: Adult Immunizations up to date. - Infectious Disease History:: Denies. - Social history:: Smoking status: Patient denies any tobacco usage or history of. Patient uses alcohol, on a daily basis. Patient/guardian denies using street drugs. - Family history:: not pertinent. Screenin:34 [facility] ED Fall Risk Assessment (Adult) History of falling in the last 3 months, br2 including since admission No falls in past 3 months (0 pts) Confusion or Disorientation No (0 pts) Intoxicated or Sedated No (0 pts) Impaired Gait No (0 pts) Mobility Assist Device Used No (0 pt) Altered Elimination No (0 pt) Score/Fall Risk Level 0 - 2 = Low Risk Oriented to surroundings. Abuse screen: Denies threats or abuse. Denies injuries from another. Nutritional screening: No deficits noted. Tuberculosis screening: No symptoms or risk factors identified. Assessment: 06:05 Reassessment: Patient appears in no apparent distress at this time. No changes from al5 previously documented assessment. Patient and/or family updated on plan of care and expected duration. Pain level reassessed. Patient is alert, oriented x 3, equal unlabored respirations, skin warm/dry/pink. 08:13 Reassessment: Patient appears in no apparent distress at this time. Patient is alert, bp oriented x 3, equal unlabored respirations, skin warm/dry/pink. 08:31 Reassessment: Patient is alert, oriented x 3, equal unlabored respirations, skin aa5 warm/dry/pink. Awaiting urine results. . Vital Signs: 05:28 BP 125 / 97; Pulse 71; Resp 18; Temp 97.8; Pulse Ox 98% ; Weight 86.18 kg; Height 5 ft. br2 6 in. ; Pain 5/10; 06:05 BP 124 / 76; Pulse 63; Resp 18; Pulse Ox 97% ; al5 08:07 BP 127 / 69; Pulse 57; Resp 15; Pulse Ox 97% ; bp 05:28 Body Mass Index 30.67 (86.18 kg, 167.64 cm) br2 05:28 Pain Scale: Adult br2 ED Course: 05:17 Patient arrived in ED. mr 05:19 George Frazier MD is Attending Physician. rt 05:30 Triage completed. br2 05:30 Arm band placed on right wrist. br2 05:34 Patient has correct armband on for positive identification. Bed in low position. Call br2 light in reach. Provided Education on: PLAN OF CARE. 05:49 No provider procedures requiring assistance completed. al5 06:04 Joelle Harrison, RN is Primary Nurse. al5 06:08 CT Abd/Pelvis - Without Contrast In Process Unspecified. EDMS 07:09 Attending Physician role handed off by George Frazier MD ms3 07:09 Mike Colon DO is Attending Physician. ms3 08:50 Hima Forde DO is Referral Physician. ms3 Administered Medications: No medications were administered Medication: 05:49 VIS not applicable for this client. al5 Outcome: 08:50 Discharge ordered by . ms3 10:16 Patient left the ED. ss Signatures: Dispatcher [employer] EDNM TarikTess, Reg Reg mr MoizNika, RN RN aa5 Clara Patton RN RN ss Josué Spears, RN PELON bp Mike Colon DO DO ms3 George Frazier MD MD rt Joelle Harrison RN RN al5 Kaila Rosa RN RN br2 Corrections: (The following items were deleted from the chart) 05:57 05:49 Inserted saline lock: 20 gauge in left antecubital area, using aseptic technique. hm5 Blood collected. Flushed with 10 mL NS al5
[2024-11-24 10:22] VITALS: TEMP 97.8
[2024-11-24 10:23] VITALS: O2SAT 97
[2024-11-24 10:24] VITALS: BP 127/69
== END 2024-11-24 10:16 | disposition home or self-care (01) ==
LOC: ER 05:12
DX: R10.9 Unspecified abdominal pain (principal)
CPT/HCPCS: 36415; 74176; 80053; 81001; 85025; 99281